=== PATIENT | female | born 1970 | race Caucasian/White ===

== ENCOUNTER 2016-05-06 09:58 | Day surgery (SDC) | payer BC ==
[2016-05-03 16:19] VITALS: BMI 22.6
--- NOTE | 2016-05-06 06:47 | HP ---
DATE OF ADMISSION: CHIEF COMPLAINT: Suspicious left tonsillar mass. HISTORY OF PRESENT ILLNESS: The patient is a 46-year-old female who presented to my office as a referral because of a suspicious mass located in the left tonsillar area by her family physician. The patient denied any symptoms and had not noticed the lesion and does not have any complaints of pain, referred otalgia or difficulty swallowing. She is a heavy smoker and smokes approximately one-third to 1 pack of cigarettes or more per day. We discussed with the patient for over 10 minutes regarding the fact it is important that she quit smoking for obvious health reasons. We recommended to her that there are various modalities to help her quit including Chantix, Zyban. NicoDerm CQ, E-cigarette, etc. We also advised her we would be more than happy to prescribe any of these medications for her. Quitting smoking I advised her would reduce her risk of complications from smoking such as heart disease, hypertension, peripheral vascular disease, COPD, emphysema, lung cancer, stroke as well as cancer of the head and neck etc. At the time, the patient was seen in my office, clinical examination of the oropharynx including an indirect laryngoscopy revealed that the patient had a suspicious mass involving the superior aspect of the left tonsil. The mass did not appear to extend into the tonsil. It was palpably firm, but not tender. Because of the patient's history of heavy smoking and the concern of possible malignancy, it was recommended the patient undergo excision of this left tonsillar mass under general anesthesia. Past medical history reveals she has no known allergies to medications. Current medications include Cozaar and Lexapro. Previous surgeries include a D&C. She is 2 para, 2 , 0 miscarriage. She smokes one-half to one-third or more packs of cigarettes per day and has done so for the past 20 years. The review of systems is positive with respect to cardiovascular system for hypertension and respect to the neurological/psychological system in that the patient is on any antidepressant. The remainder of review of systems unremarkable. OBJECTIVE: HEENT EXAMINATION: The patient is normocephalic. Tympanic membranes are normal. Middle ear spaces are free of any fluid or infection. Pupils equal, round, and reactive to light and accommodation. Extraocular movements are within normal limits. Intranasal examination reveals moderate to severe septal deviation with compensatory hypertrophy of inferior turbinates and a moderate amount of clear mucus on the mucous membranes draining down the posterior pharynx. Examination of the oropharynx including indirect laryngoscopy using the headlight mirror does not reveal any suspicious lesions of the right or left piriform sinus, base of tongue, epiglottis or of the larynx proper or true vocal cords. However examination of the oropharynx reveals patient has a fairly large approximately 2 to 3 cm lesion located near the superior pole of the left tonsil but does not appear to invade the tonsil. The lesion is palpable, firm, but nontender. Palpation of the neck is negative for any neck masses or lymphadenopathy. Cranial nerves 2 through 12 and remainder of the head and neck exam are all within normal limits. CHEST/CARDIOVASCULAR: Both lung elizabeth are clear to percussion and auscultation. Patient is in regular sinus rhythm. S1 and S2 are present without evidence of any murmurs, S3s or S4s. Peripheral pulses are bilaterally symmetrical and within normal limits. ABDOMEN: There is no evidence of any masses, megaly or tenderness. The abdomen is soft. Skin is unremarkable. Musculoskeletal and neurological are within normal limits. PELVIC/RECTAL EXAM: The pelvic/rectal exam is deferred at this time because the patient has this done on a regular basis at her family physician's office. The remainder of physical exam is essentially unremarkable. IMPRESSION: Left peritonsillar mass, suspect malignancy?. PLAN: The patient is scheduled to undergo a complete excision of left peritonsillar mass (not a tonsillectomy) under general anesthesia in the a.m. ATTENTION RNS IN THE PRESURGICAL AREA: The only preoperative antibiotics prophylactically that I have ordered is aqueous penicillin G 2 million units IV to be given once an intravenous line has been established. If any other prophylactic antibiotics should arrive at the presurgical area bearing my name, please be aware that they were not ordered by me and they should be canceled and returned to the pharmacy department and the patient's account should be credited appropriately. In addition, I have ordered for this patient to receive 1000 mg of Ofirmev IV, once an intravenous line has been established. Again, the only 2 medications that have been ordered by my office for this patient to receive presurgically are 2 million units of aqueous penicillin G IV and 1000 mg of Ofirmev IV, both to be given once an intravenous line has been established. I have explained the operation/procedure to the patient, including the risks, benefits, side effects, alternative therapies (including not receiving the proposed treatment or service), the likelihood of the patient achieving his/her goals, and potential recuperation problems for the procedure/sedation/analgesia, as well as any blood products, if indicated. I also explained to the patient the risks, benefits, and side effects of the alternatives, as well as the risks related to not receiving the proposed procedure, care treatment or services.
[~2016-05-06 09:58] MED LIST: FAMOTIDINE 20 MG/2 ML VIAL IV PRN; LACTATED RINGERS 1,000 ML IV SCH; LIDOCAINE 1% 20 ML VIAL (10MG/ML) FOR IV START INTRADERMA PRN; ONDANSETRON 4 MG/2 ML VIAL IVP PRN; Pre Op ABX Message 1 EACH MISC MISCELLANE ONE
[2016-05-06] MEDS ORDERED: LIDOCAINE 1% 20 ML VIAL (10MG/ML) FOR IV START SQ ONE (10:29)
[2016-05-06 10:32] VITALS: RESP 16
[2016-05-06] MEDS ORDERED: PENICILLIN G POTASSIUM 2,000,000 UNIT in DEXTROSE 5% IN WATER 100 ML IVPB ONE ×2 (11:00)
[2016-05-06] MEDS ORDERED: ACETAMINOPHEN IV (For NPO) 1,000 MG in EMPTY BAG 1 BAG IVPB ONE (11:00)
[2016-05-06] MEDS ORDERED: LIDOCAINE 1% INJ 10MG/ML (20 ML MDV) ONE (12:34)
[2016-05-06] MEDS ORDERED: MIDAZOLAM 2 MG/2 ML VIAL ONE (12:34)
[2016-05-06] MEDS ORDERED: PROPOFOL 10 MG/ML 20 ML VIAL IV ONE (12:34)
[2016-05-06] MEDS ORDERED: SUCCINYLCHOLINE CHLORIDE 100 MG/5 ML SYR IV ONE (12:34)
[2016-05-06] MEDS ORDERED: fentaNYL (PF) 50 MCG/ML 2 ML AMP ONE (12:34)
[2016-05-06] MEDS ORDERED: ONDANSETRON 4 MG/2 ML VIAL ONE (12:34)
[2016-05-06] MEDS ORDERED: DEXAMETHASONE SOD PHOS (MDV) 100 MG/10 ML VIAL ONE (12:34)
[2016-05-06] MEDS ORDERED: BUPIVACAINE (PF) 0.5% 30 ML VIAL MISCELLANE ONE (13:12)
[2016-05-06 13:31] VITALS: TEMP 96.8
[2016-05-06] MEDS: HYDROmorphone 1 MG/ML 1 ML SYRINGE IVP PRN ×2 (13:38→14:03)
[2016-05-06] MEDS ORDERED: LACTATED RINGERS 1,000 ML IV ONE (14:21)
[2016-05-06] MEDS ORDERED: Acetaminophen-Codeine 300-30mg TAB PO ONE (14:25)
[2016-05-06 15:24] VITALS: BP 150/90; PULSE 66
--- NOTE | 2016-05-09 07:36 | OP ---
DATE OF SERVICE: 05/06/2016 SURGEON: GORDO IVAN MD SAUSAGE MIXER: PREOPERATIVE DIAGNOSIS: Left peritonsillar mass (approximately 1.5 cm in diameter). POSTOPERATIVE DIAGNOSIS: Left peritonsillar mass (approximately 1.5 cm in diameter). Final pathology is pending. OPERATION: Excision of left peritonsillar mass. ANESTHESIA: General anesthesia. ESTIMATED BLOOD LOSS: Less than 25 mL. SPECIMENS REMOVED: COMPLICATIONS: None. OPERATIVE FINDINGS: DESCRIPTION OF PROCEDURE: The patient was placed on the operating table in the supine position and after uneventful induction and endotracheal intubation, satisfactory general anesthesia was obtained. Next, the patient was draped in the usual and customary fashion following which a #3 Dre Erasto mouth gag was introduced into the patient's oropharynx, expanded and subsequently clamped and suspended on a Borden stand. Initial inspection revealed the patient had a somewhat the patient had normal appearing tonsils. However, at the superior pole of the left tonsil, there appeared to be fairly well encapsulated 1-1/2 to 1.7 cm well-circumscribed non-mobile mass which appeared to be separate from the tonsil tissue proper. This mass was enclosed within the anterior and posterior pillars of the left tonsil, however. Therefore, using a sickle knife, an incision was made approximately 4 mm lateral to the anterior pillar beginning at the superior point and working inferiorly. A similar incision was carried out on the posterior pillar behind this mass in question. Because the mass appeared to be encapsulated, it was decided to carefully dissect the mass away from the surrounding tissue using a combination of the Cleopatra dissection and suction cautery in an effort to not to either ruptured or disturb this mass. It is difficult to tell whether this cystic or not but it is definitely appears to be adjacent to the tonsil and not actual portion of the tonsil. With careful tedious dissection, the mass was able to be dissected completely from the underlying tonsillar fossa and was removed completely and separately from the tonsillar tissue. That is to say, no tonsillar tissue was removed. This does not appear to be tonsil tissue. The complete specimen was placed in formalin and sent to pathology for permanent sectioning. Hemostasis was then obtained by using suction cautery. The area was subsequently infiltrated with approximately 10 mL of 0.5% Marcaine solution without epinephrine to achieve some postoperative anesthesia. Further inspection in the hypopharynx did not reveal any suspicious lesions of the base of tongue vallecula, epiglottis, vocal cords or right or left piriform sinus. At this point, the procedure was terminated. Estimated blood loss was less than 25 mL. The mouth gag was removed without incident and the patient tolerated the procedure well and was returned to the recovery room in satisfactory condition. Final pathology is pending.
== END 2016-05-06 15:39 | disposition home or self-care (01) ==
LOC: OR 09:58
PROVIDERS: ATTEND Otolaryngology
DX: K09.8 Other cysts of oral region, not elsewhere classified (principal); F17.210 Nicotine dependence, cigarettes, uncomplicated; I10 Essential (primary) hypertension; F32.9 Major depressive disorder, single episode, unspecified; Z79.899 Other long term (current) drug therapy
CPT/HCPCS: 88305; 42999; J2250; J2405; J2001; J3010; J1170; J1100; J0131; J0330; J2704

== ENCOUNTER → 2021-09-14 | Outpatient (CLI) | payer BC ==
--- NOTE | 2021-09-17 18:58 | MR ---
EXAMINATION TYPE: MR shoulder RT wo con DATE OF EXAM: 09/14/2021 COMPARISON: Outside radiographs 08/25/2021 HISTORY: 51-year-old female M25.511, Right shoulder pain. TECHNIQUE: Multiplanar, multisequence imaging of the right shoulder is performed without contrast. FINDINGS: Significant tear subscapularis tendon. Most of the superior half fibers are torn. Articular sided tea r of the inferior half fibers. Minimal fatty streaks within the superior half of the subscapularis muscle belly. Full-thickness tear far anterior supraspinatus tendon. Articular sided extension posteriorly to the p osterior aspect of the supraspinatal tendon. Subsequent intrasubstance extension of tear throughout the anterior infraspinatus tendon. Mild fluid within the subacromial/subdeltoid bursa. Moderate degenerative changes AC joint with joint space narrowing, subchondral cystic change, reactiv e marrow edema, and marginal spurring. No significant encroachment onto the underlying cuff. Glenohumeral joint is intact with a small joint effusion. Signal within the posterior superior glenoid labrum suggesting SLAP tear extending forward to the bic eps anchor. Tear appears to extend throughout the long head biceps tendon and into the upper to mid b icipital groove. Moderate associated tenosynovial fluid. Medial subluxation of the biceps tendon in t he upper bicipital groove secondary to the subscapularis tendon tear. There is a 1.5 cm low signal intramedullary lesion within the surgical neck region of the proximal hu meral shaft. This has low to intermediate T2-weighted signal and some punctate internal low signal ar eas. Consider hemangioma or enchondroma. Recommend 6 month follow-up MRI to reassess as it is not angie arent on the patient's radiograph. No Hill-Sachs deformity or os acromiale. IMPRESSION: 1. Diffuse rotator cuff tendinosis. There is significant tear of the subscapularis tendon. Most of th e superior half fibers are torn with articular sided tear of the here half fibers. Minimal fatty stre aks within the superior half of the subscapularis muscle belly. 2. Small full-thickness tear of the far anterior supraspinatus tendon. Contiguous articular sided ext ension posteriorly to the posterior aspect of the supraspinatus tendon and contiguous subsequent intr asubstance extension of tear to involve the anterior infraspinatus tendon. 3. SLAP tear with tear extending into the long head biceps tendon. Associated long head biceps tenosy novitis. Medial subluxation of the tendon within the bicipital groove secondary to the above-mentione d subscapularis tendon tear. 4. Moderate AC joint OA. 5. A 1.5 cm low signal intramedullary lesion within the proximal humeral shaft could represent a eleazar ngioma or enchondroma. Recommend 6 month follow-up MRI to reassess as it is not apparent on the patie nt's radiographs.
== END | disposition home or self-care (01) ==
LOC: RADMRIMAIN 10:31
PROVIDERS: ATTEND Orthopaedic Surgery
DX: M19.011 Primary osteoarthritis, right shoulder (principal); M75.111 Incomplete rotator cuff tear or rupture of right shoulder, not specified as traumatic